=== PATIENT | female | born 1990 | race Caucasian/White ===

== ENCOUNTER 2019-03-04 06:07 | Inpatient (IN) ==
[2019-03-04] MEDS ORDERED: *HR* LORazepam 1 MG TABLET PO PRN (06:21)
[2019-03-04] MEDS ORDERED: Haloperidol Lactate 5 MG/ML VIAL IM PRN (06:21)
[2019-03-04] MEDS ORDERED: traZODone 50 MG TABLET PO PRN (06:21)
[2019-03-04] MEDS ORDERED: MOM Conc 10 ML UD.LIQ PO PRN (06:21)
[2019-03-04] MEDS ORDERED: *HR* LORazepam 2 MG/ML VIAL IM PRN (06:21)
[2019-03-04] MEDS: hydrOXYzine pamoate 25 MG CAPSULE PO PRN ×3 (11:15→21:30)
[2019-03-04] MEDS ORDERED: Nicotine 2 MG GUM BC PRN (13:29)
--- NOTE | 2019-03-04 13:58 | Psychiatry History & Physical ---
Date of Encounter: 03/04/19 Time of Encounter: 13:30 History of Present Illness Patient Stated Chief Complaint: "I'm doin' better" Medicare Admission Attestation: For traditional Medicare patients the provided hospital inpatient services are reasonable and necessary and in the case of services not specified as inpatient-only under 42 CFR 419.22 (n), that they are appropriately provided as inpatient services in accordance 42 CFR 412.3. For Critical Access Hospital the patient may reasonably be expected to be discharged or transferred to a hospital within 96 hours after admission to the Critical Access Hospital. Admitted From: Emergency Dept ([facility]) Plans for Post Hospital Care: Home History of Present Illness: Ms. Novak is a 28 year old female who was admitted after presenting to [facility] with thoughts of hurting herself and feeling mentally unstable. She tells me today she is doing better. She states historically in the last month, she was changed on her outpatient medications and was started on Latuda. It had been increased up to 40 mg but she felt very slow and lethargic on it. It did not seem to be helping her depression, infact made her feel worse. She reports sleeping a lot, feeling very depressed mood, having suicidal thoughts especially after being restarted on a high dose of Wellbutrin. She has no desire to do anything she is like to do, she had poor appetite and just feels hopeless about the future. She denies any episodes of panchito or signs and symptoms of panchito. She denies auditory or visual hallucinations. She denies any type of mind reading or getting special messages from the TV or radio. Is no paranoia in regards to [employer]. She has 2 children at home and 8-year-old that has some mental health issues and medical issues as well as a 1-year-old child. She has stressor from her [id number] in regards to not following a behavior plan with her oldest son which causes her stress at home. She denies any current suicidal thoughts at this time. She has parents that live right next door to her that are very supportive of her and taking care of her children right now. She denies ever having thoughts of wanting to hurt her children. She feels that she is feeling better having been off Wellbutrin for last 2 days as well as being off Latuda. She has a history of being on different antidepressant since she was 15 years old targeting her depression and anxiety. At one point time Lexapro seem to help. She is willing to restart on the Lexapro at 10 mg to see if that helps again. She has no other complaints. She would like to have the ability to visit with her children on the unit which I think would be helpful for her mental health. We discussed scheduling outpatient therapy when she is ready to discharge which she is agreeable to. Past Med Surg Social Fam HX - Past Psychiatric History Psychiatric history: Reports: anxiety, depression Past psychiatric history details: Patient has been receiving mental health services in the community since she was 15 years old. No inpatient till now. Family psychiatric history: Yes (Extensive history of depression and anxiety. 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) Current living situation: Home - Independent Activity Level: Independent ambulation Recent Out of Country Travel Within the Last 8 Weeks: No Exposure or Possible Exposure to Illness During Travel: No Medications & Allergies Allergy/AdvReac Type Severity Reaction Status Date / Time Carbinoxamine [From Rondec] Allergy See Verified 03/04/19 06:20 Comments pseudoephedrine [From Rondec] Allergy See Verified 03/04/19 06:20 Comments Review of Systems Psychiatric: Reports: depression, anxiety, abnormal sleep pattern, suicidal ideation, change in appetite, anhedonia, difficulty concentrating, hopelessness, irritability, mood swings Exam - HEENT Head exam IM: Present: atraumatic Eye exam IM: Present: EOMI - Neurological Neurological exam: Present: CN II-XII intact (per eval ED) - Musculoskeletal Gait: normal Station: slouched Strength & Tone: normal for patient - Psychiatric Patient Orientation: Yes Person, Yes Time, Yes Place, Yes Circumstance Level of alertness: Other (tired) Behavior: anxious Psychomotor activity: Slowed Eye Contact: Maintains Eye Contact Mood Description: Depressed, Anxious Affect description: congruent with mood, flat, anxious Speech Volume: Normal Speech pattern: normal rate, normal rhythm, normal tone, fluent Language & Vocabulary: consistent with education Thought Process: Intact, Logical, Linear, Goal Oriented Thought Content: Yes Intact Attention Span Ability: Capable of Focused Attention Memory Description: Grossly Intact Patient Reliability: Reliable Historian Fund of knowledge: Yes average Intelligence Estimate: Average Judgment: Fair Insight: Partial Assessment and Plan (1) Major depression, recurrent Current visit: Yes Status: Acute Plan: Admit inpatient for safety and stabilization, Close observation, Suicide Precautions per unit protocol, Group Therapy, Monitor sleep, Monitor appetite Risks, benefits, side effects, alternatives discussed w/pt: Yes (Restart Lexapro 10 mg po q AM) Patient agreeable to treatment: Yes (Signing in voluntary) Estimated Length of Stay (Days): 5
[2019-03-04] MEDS: Ibuprofen 400 MG TABLET PO PRN (18:33)
[2019-03-04] MEDS: Mag Hydrox/Al Hydrox/Simeth 30 ML UDC PO PRN (19:41)
--- NOTE | 2019-03-05 10:40 | Psychiatry Progress Note ---
Date of Encounter: 03/05/19 Time of Encounter: 10:00 Subjective Interval history: Ms. Novak was resting comfortably in her room and was asked to come to the group room to talk. She agreed. Upon interview patient states she is feeling quite tired, she took a trazadone last night and had never taken one before and feels like it is still causing her drowsiness. She was started on lexapro this morning and so far has not had any adverse effects of this medication. She states she has a long history of depression and has been on multiple different medications in the past. She states she was on wellbutrin while for her 1 year old and after her this seemed to give her more energy but also made her very anxious, after starting Latuda and Wellbutrin she states she thought about killing herself by taking a bunch of pills and just not waking up because of how down and anxious she was. She did not do this due to having her 1 year old at home with her. She does state that she no longer feels like hurting herself and that she is feeling much better after stopping the Wellbutrin. She states this morning she does not feel depressed just tired. She does state she has had a few crying spells since being admitted. She states she has been eating and drinking well and and has been in contact with her . Review of Systems Constitutional: Denies: fever Cardiovascular: Denies: chest pain, palpitations Respiratory: Denies: cough Gastrointestinal: Denies: abdominal pain Musculoskeletal: Denies: myalgia Neurological: Denies: headache Psychiatric: Reports: depression, anxiety. Denies: suicidal ideation, homicidal ideation, auditory hallucinations, visual hallucinations Results - Vital Signs Vital Signs: Temp Pulse Resp BP Pulse Ox 98.5 F 77 16 113/78 98 03/05/19 09:00 03/05/19 09:00 03/05/19 09:00 03/05/19 09:00 03/05/19 09:00 Assessment and Plan (1) Major depression, recurrent Current visit: Yes Status: Acute Plan: Continue hospitalization, Encourage participation in unit milieu, Group Therapy, Monitor sleep, Monitor appetite Additional Plan: Continue Lexapro at current dosage, Patient has been on lexapro in the past and has done will with this. She states she is feeling much better after being off of the wellbutrin for a few days. States she no longer has suicidal ideation and denies any homicidal ideation. We will decrease her PRN Trazodone (50 mg to 25 mg) in an attempt to be less sedating during the day time if she ends up taking it at night for insomnia. Risks, benefits, side effects, alternatives discussed w/pt: Yes (Restart Lexapro 10 mg po q AM) Patient agreeable to treatment: Yes (Signing in voluntary) - Attending Attestation I examined this patient and my medical decision-making was reviewed with the Resident Physician. I agree with the documented findings, disposition and treatment plan as described except to the extent set forth below. Patient states she is feeling less depressed, "just drunk feeling" from taking the Trazodone last evening. We discussed decreasing the dose and will see if it has the same side effect again at less a dose if she needs it in the future. Trazodone 50mg decreased to 25 mg. She no longer has suicidal thoughts and is feeling much better off the other mediations. She is nervous about going home too soon as she may not be ready and needs to make sure she is not having any side effects of her medications in order to take care of her two children. No SI/HI. No A/V hallucinations. Improved appetite and engaging more on the unit. She does not feel she wants her children to visit on the unit after experiencing some of the other patients here. Psychiatry Exam - Constitutional Vitals: Temp Pulse Resp BP Pulse Ox 98.5 F 77 16 113/78 98 03/05/19 09:00 03/05/19 09:00 03/05/19 09:00 03/05/19 09:00 03/05/19 09:00 General appearance: age & developmentally appropriate, well-groomed - Musculoskeletal Gait: normal Station: relaxed Strength & Tone: normal for patient - Psychiatric Patient Orientation: Yes Person, Yes Time, Yes Place, Yes Circumstance Level of alertness: Alert Behavior: calm, cooperative Psychomotor activity: Normal Eye Contact: Maintains Eye Contact Mood Description: Depressed Patient description of mood: Tired Affect description: congruent with mood Speech Volume: Normal Speech pattern: normal rate, normal rhythm, normal tone Language & Vocabulary: consistent with education Thought Process: Intact, Logical, Linear, Goal Oriented Thought Content: Yes Intact, No Suicidal ideation, No Homicidal ideation, No Overt delusions Perceptual Disturbances: No Reacting to internal stimuli, No Auditory hallucinations, No Visual hallucinations Attention Span Ability: Capable of Focused Attention Memory Description: Grossly Intact Patient Reliability: Reliable Historian Fund of knowledge: Yes average Intelligence Estimate: Average Judgment: Good Insight: Full
[2019-03-05] MEDS: Mag Hydrox/Al Hydrox/Simeth 30 ML UDC PO PRN (12:37)
[2019-03-05] MEDS: hydrOXYzine pamoate 25 MG CAPSULE PO PRN ×2 (12:37→21:58)
[2019-03-05] MEDS: traZODone 50 MG TABLET PO PRN (22:46)
[2019-03-06] MEDS: Mag Hydrox/Al Hydrox/Simeth 30 ML UDC PO PRN (09:04)
[2019-03-06] MEDS: hydrOXYzine pamoate 25 MG CAPSULE PO PRN (09:50)
--- NOTE | 2019-03-06 13:54 | Psychiatry Progress Note ---
Date of Encounter: 03/06/19 Time of Encounter: 13:48 Subjective Interval history: Janell was seen at the dining room this afternoon. She presented to [facility] on 03/04/19 due to episodes of thoughts of hurting herself. She believes some of these thoughts were occurring secondary to bulky treatment as well as to do. She reports a sense her stay here her thoughts of completely gone away. Additionally reporting difficulty sleeping. Reports the hydroxyzine is helping her with anxiety but at times feeling sleepy secondary to the hydroxyzine. She states that she has good support system and is excited to return home to her and her children. States that she lives very close to her family and currently they are watching her 2 children. She is denying any suicidal or homicidal ideation and reports good appetite and overall good mood. Review of Systems Constitutional: Denies: fever, chills, weakness Ears, Nose, Throat: Denies: congestion, dysphagia Cardiovascular: Denies: chest pain, palpitations Respiratory: Denies: cough, dyspnea, wheezes Gastrointestinal: Denies: abdominal pain, nausea, vomiting Genitourinary male: Denies: dysuria, frequency Neurological: Denies: headache, weakness, numbness Psychiatric: Reports: depression, anxiety. Denies: suicidal ideation, homicidal ideation, auditory hallucinations, visual hallucinations Results - Vital Signs Vital Signs: Temp Pulse Resp BP Pulse Ox 98.3 F 100 16 98/67 96 03/06/19 09:00 03/06/19 09:00 03/06/19 09:00 03/06/19 09:00 03/06/19 09:00 Assessment and Plan (1) Major depression, recurrent Current visit: Yes Status: Acute Plan: Continue hospitalization, Close observation, Encourage participation in unit milieu Additional Plan: Currently stable with medication management of Lexapro. Anxiety is also stable with hydroxyzine. Did report some residual sleepiness hydroxyzine as well as combination of trazodone at night. Would recommend continuing hydroxyzine and Lexapro may be stopping trazodone. Has resources available to follow outpatient with a psychologist for therapy. Risks, benefits, side effects, alternatives discussed w/pt: Yes (Restart Lexapro 10 mg po q AM) Patient agreeable to treatment: Yes (Signing in voluntary) Consult Discharge Plan - Plan Referrals: NONE,PCP [Primary Care Provider] - - Attending Attestation I examined this patient and my medical decision-making was reviewed with the Resident Physician. I agree with the documented findings, disposition and treatment plan as described except to the extent set forth below. Patient denies any adverse side effects of her medications. She is doing well and wants to make sure her outpatient appointments are scheduled and feels she will be ready to discharge tomorrow. Her sleep has greatly improved with the low dose trazodone and would like to utilize the Vistaril low dose for any anxiety on outpatient basis. No SI/HI. Future oriented Psychiatry Exam - Constitutional Vitals: Temp Pulse Resp BP Pulse Ox 98.3 F 100 16 98/67 96 03/06/19 09:00 03/06/19 09:00 03/06/19 09:00 03/06/19 09:00 03/06/19 09:00 General appearance: age & developmentally appropriate - Musculoskeletal Gait: normal - Psychiatric Patient Orientation: Yes Person, Yes Time, Yes Place, Yes Circumstance Level of alertness: Alert Behavior: calm, cooperative Psychomotor activity: Normal Eye Contact: Maintains Eye Contact Mood Description: Euthymic/stable Affect description: congruent with mood Speech Volume: Normal Speech pattern: normal rate, normal rhythm, normal tone, fluent Language & Vocabulary: consistent with education Thought Process: Intact, Logical, Linear, Goal Oriented Thought Content: Yes Intact Attention Span Ability: Capable of Focused Attention Memory Description: Grossly Intact Patient Reliability: Reliable Historian Fund of knowledge: Yes abstraction ability Intelligence Estimate: Average Judgment: Good Insight: Full
[2019-03-06] MEDS: traZODone 50 MG TABLET PO PRN (21:18)
[2019-03-07] MEDS: Mag Hydrox/Al Hydrox/Simeth 30 ML UDC PO PRN (08:55)
[2019-03-07] MEDS: hydrOXYzine pamoate 25 MG CAPSULE PO PRN (09:14)
--- NOTE | 2019-03-07 10:06 | Discharge Summary ---
Date of Encounter: 03/07/19 Time of Encounter: 10:00 Diagnosis - Discharge Diagnosis (1) Major depression, recurrent Status: Acute Qualifiers: Active/Remission status: currently active Major depression episode s everity: severe Psychotic features: without psychotic features Qualified Code(s): F33.2 - Major depressive disorder, recurrent severe without psychotic features Medications - Discharge Medications Prescriptions: Escitalopram [Lexapro] 10 mg PO DAILY #15 tablet Transmission Status: Pending to [facility] traZODone [TraZODone] 25 mg PO HS PRN #15 tablet PRN Reason: Insomnia Transmission Status: Pending to [facility] hydrOXYzine pamoate [Vistaril] 25 mg PO TID PRN #30 capsule PRN Reason: Anxiety Transmission Status: Pending to [facility] Biotin 1 mg PO DAILY 03/04/19 [History] Cholecalciferol (Vitamin D3) [Vitamin D3] 1,000 units PO DAILY 03/04/19 [History] Lansoprazole [Prevacid] 15 mg PO QAM 03/04/19 [History] Ubidecarenone [Co Q-10] 100 mg PO DAILY 03/04/19 [History] Vitamin B Complex [B Complex] 1 tab PO DAILY 03/04/19 [History] Escitalopram [Lexapro] 10 mg PO DAILY #15 tablet 03/07/19 [Rx] hydrOXYzine pamoate [Vistaril] 25 mg PO TID PRN #30 capsule 03/07/19 [Rx] traZODone [TraZODone] 25 mg PO HS PRN #15 tablet 03/07/19 [Rx] Allergy/AdvReac Type Severity Reaction Status Date / Time Carbinoxamine [From Rondec] Allergy See Verified 03/04/19 21:16 Comments pseudoephedrine [From Rondec] Allergy See Verified 03/04/19 21:16 Comments Provider Date of admission: 03/04/19 06:07 Primary care physician: PCP NONE Discharging clinician: Lyric Lee Psychiatry Exam - Constitutional Vitals: Temp Pulse Resp BP Pulse Ox 97.4 F L 77 16 103/71 98 03/06/19 21:00 03/06/19 21:00 03/06/19 21:00 03/06/19 21:00 03/06/19 21:00 General appearance: age & developmentally appropriate, well-groomed, well- nourished - Musculoskeletal Gait: normal Station: relaxed Strength & Tone: normal for patient - Psychiatric Patient Orientation: Yes Person, Yes Time, Yes Place, Yes Circumstance Level of alertness: Alert Behavior: calm, cooperative Psychomotor activity: Normal Eye Contact: Maintains Eye Contact Mood Description: Euthymic/stable Patient description of mood: good Affect description: congruent with mood, full range Speech Volume: Normal Speech pattern: normal rate, normal rhythm, normal tone, fluent, spontaneous Language & Vocabulary: consistent with education Thought Process: Linear, Goal Oriented Thought Content: No Suicidal ideation, No Homicidal ideation, No Overt delusions Perceptual Disturbances: No Auditory hallucinations, No Visual hallucinations Attention Span Ability: Capable of Focused Attention Memory Description: Grossly Intact Patient Reliability: Reliable Historian Fund of knowledge: Yes abstraction ability, Yes aware of current events Intelligence Estimate: Average Judgment: Good Insight: Full Hospital Course Hospital course: Ms. Novak is a 28 year old female who was admitted for depression and recent overdose. She is linked with [facility]. 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 She used as needed Vistaril for anxiety and trazodone for insomnia. Patient was educated of diagnosis and the risk-benefit side effects of this alternative treatment options and was monitored for responsiveness and side effects. Mood anxiety sleep and appetite interest improved as did future orientation. Self-harm thoughts subsided, thinking cleared, psychosis resolved, and mood stabilized. Patient was able to attend both individual and group therapy sessions as well as meet with the psychiatrist daily and urged to discuss any medication or treatment issues or other concerns. The patient was educated primarily by verbal means about their diagnosis and manifestations in their life. The option for treatment including group and individual therapy programming was offered to the patient in addition to the use of medications with all their potential risks, benefits, and side effects as well as the risks of not taking medication and non-adhereance were discussed with the patient at length. The patient was given the opportunity to ask questions and was noted to participate in the treatment in the planning process. The patient felt ready and eager to be discharged from the inpatient psychiatric unit to continue on with treatment as an outpatient. The patient agreed that is they were safe for this disposition. The patient was considered to be able to participate in informed consent and decision making with respect to medical, legal, and financial issues of the time of discharge. At the time of discharge the patient adamantly denied any concerns for lethality including suicidal or homicidal thoughts ideations or plans and was future oriented toward ongoing mental health care, medical follow-up and sobriety. Time spent discussing smoking cessation with patient: 3 to 10 minutes Does patient wish to continue nicotine replacement upon disc: No - Time Spent with Patient Total time spent providing and/or coordinating discharge services: 20 Less than 30 minutes Specific discharge activities: Interval history reviewed. Available labs reviewed . Psychotherapy provided. Patient had an opportunity to ask questions and address concerns. Patient was in agreement with the treatment plan. The risks benefits and side effects of medications were discussed with the patient, including alternatives and treatment. The patient was educated on the abstaining from any alcohol or illicit substances, following up with all scheduled appointments, and taking all medications as prescribed. Assessment and Plan - Patient/Caregiver Discharge Instructions Activity: resume usual activities as tolerated Diet: regular diet Additional Instructions: Continue current medications. Follow up with outpatient mental health. Encourage continued therapy in a group or individual setting. The patient was discharged to home. - Follow up Plan Follow up with: NONE,PCP [Primary Care Provider] - Functional capacity at discharge: independent ambulation Overall status at discharge: Stable Disposition: Home, Self-Care Quality - Multiple Antipsychotics Patient discharged on 2 or more antipsychotic medications: No Procedures - Procedures Procedures: Medication Management, Crisis Stabilization, Supportive Therapy, Group Therapy, Psychoeducational Therapy
[2019-03-07 10:31] VITALS: BP 129/85
[2019-03-07] MEDS: Ibuprofen 400 MG TABLET PO PRN (10:40)
== END 2019-03-07 12:10 | disposition home or self-care (01) | DRG 885 ==
LOC: SUATTDRO 06:07 → 1ANU 06:07
PROVIDERS: ADMIT Psychiatry & Neurology Psychiatry; ATTEND Psychiatry & Neurology Psychiatry